=== PATIENT | male | born 1955 | race Caucasian/White ===

== ENCOUNTER 2019-09-28 09:30 | Outpatient (CLI) | payer OTHER, SELFPAY ==
--- NOTE | ~2019-09-28 | CT_ITS ---
EXAMINATION: CT lung screening DATE: 09/28/2019 10:38 INDICATION: Personal history of tobacco dependence, current smoker with 35 pack year history TECHNIQUE: Computed tomography (CT) of the chest was performed without intravenous contrast. The dose -length product (DLP) was 91.03 mGy-cm. Automated exposure control and iterative reconstruction techn [employer] were employed. COMPARISON: None FINDINGS: There is a 5 mm subpleural nodule in the right lower lobe on image 112. Mild emphysema is n oted. A few fissural lymph nodes are seen. The lungs are free of acute opacities. There is no pleural effusion or pneumothorax. No pathologically enlarged thoracic lymph nodes are identified. The heart size is normal. Calcified coronary artery atherosclerosis is noted. There is a fusiform aneurysm of t he ascending aorta which measures 4.7 x 4.2 cm at the level of the main pulmonary artery. There is mi ld thoracic spondylosis. A cyst is noted in the upper pole of the right kidney. IMPRESSION: 1. Lung-RADS category 2S: Benign appearance or behavior. Continue annual screening with noncontrast l ow-dose chest CT in 12 months. 2. Fusiform aneurysm of the ascending aorta. Reviewed, dictated and finalized at location A. IMPRESSION: 1. Lung-RADS category 2S: Benign appearance or behavior. Continue annual screen ing with noncontrast low-dose chest CT in 12 months. 2. Fusiform aneurysm of the ascending aorta.
== END 2019-09-28 09:31 | disposition home or self-care (01) ==
PROVIDERS: PCP Internal Medicine; Visit Provider Nurse Practitioner
DX: Z12.2 Encounter for screening for malignant neoplasm of respiratory organs (principal); Z87.891 Personal history of nicotine dependence; I71.4 Abdominal aortic aneurysm, without rupture
CPT/HCPCS: G0297

== ENCOUNTER 2020-10-13 10:30 | Outpatient (CLI) | payer OTHER, SELFPAY ==
--- NOTE | ~2020-10-13 | CT_ITS ---
EXAMINATION: CT diagnostic chest wo con EXAM DATE: 10/13/2020 10:54 INDICATION: Follow-up ascending aortic aneurysm. TECHNIQUE: Spiral CT of the chest without contrast. Axial, coronal and sagittal images of the chest were reviewed. Coronal maximum intensity pixel images of chest reviewed. The dose-length product ( DLP) for this examination was 217.01 mGy-cm. The exposure was tailored according to patient size (au to mA exposure control), and iterative reconstruction (ASIR) was used as additional dose reduction te chnique. Comparison is made to prior examination from 09/28/2019. FINDINGS: The ascending aorta measures 4.7 x 4.5 cm at the level of the main pulmonary artery, mildl y aneurysmal. There is mild emphysema and hyperinflation. There are no pleural or pericardial effusi ons. Some right mainstem bronchus tracheal debris. There is no mediastinal, hilar or axillary lymp hadenopathy. There is no pneumothorax. Heart normal in size. There is mild coronary arterial ca lcification, arterial sclerosis. There is 3 cm exophytic lesion superior pole right kidney measuring 24 Hounsfield units, most likely mildly proteinaceous cyst. There is another smaller lesion in the superior pole of the right kidney b elow this which does measure fluid density consistent with cysts. There is old right 7th rib fractu re posterolaterally. IMPRESSION: 1. Stable mildly aneurysmal ascending aorta; consider longer interval, 2 year follow-up noncontrast chest CT. 2. Mild emphysema and hyperinflation. 3. Right renal lesions likely cysts. Reviewed, dictated and finalized at location A.
== END 2020-10-13 10:31 | disposition home or self-care (01) ==
PROVIDERS: PCP Internal Medicine; Visit Provider Internal Medicine Cardiovascular Disease
DX: I71.2 Thoracic aortic aneurysm, without rupture (principal); J43.9 Emphysema, unspecified; R91.8 Other nonspecific abnormal finding of lung field
CPT/HCPCS: 71250

== ENCOUNTER 2021-03-03 09:02 | Outpatient (CLI) | payer MEDICARE, OTHER, SELFPAY ==
--- NOTE | ~2021-03-03 | US_ITS ---
EXAMINATION: US renal BI EXAM DATE: 03/03/2021 10:08 INDICATION: I10 - Essential (primary) hypertension . TECHNIQUE: Multiple grayscale and Doppler images of the kidneys were obtained (by a technologist who performed the scan) and subsequently reviewed. There is no prior study for comparison. FINDINGS: Right kidney: There is normal contour and echogenicity. It measures 9.5 x 5.0 x 5.7 centimeters. The re are 2 cysts measuring up to 2.7 cm. There is no hydronephrosis. Left kidney: There is normal contour and echogenicity. It measures 9.2 x 4.8 x 5.7 centimeters. The re are no focal renal lesions identified. There is no hydronephrosis. Bladder unremarkable. IMPRESSION: 1. Right renal cyst. Reviewed, dictated and finalized at location B. IMPRESSION: 1. Right renal cyst.
--- NOTE | ~2021-03-03 | US_ITS ---
EXAMINATION: US retroperitoneal duplex ltd EXAM DATE: 03/03/2021 10:10 INDICATION: I10 - Essential (primary) hypertension TECHNIQUE: Multiple grayscale and Doppler images of the kidneys and renal arteries were obtained. T here is no prior study for comparison. FINDINGS: The aorta peak systolic velocity is 76 cm/s. Renal arteries interrogated in several segments from origin to hilum. RIGHT RENAL ARTERY Proximal segment (origin): 145 cm/s. Middle segment: 153 cm/s. Distal segment (hilum): 129 cm/s. LEFT RENAL ARTERY Proximal segment (origin): 103 cm/s. Middle segment: 109 cm/s. Distal segment (hilum): 103 cm/s. IMPRESSION: 1. Renal artery Doppler velocities within normal limits. Reviewed, dictated and finalized at location B.
== END 2021-03-03 09:03 | disposition home or self-care (01) ==
LOC: ANHIMG 09:04
PROVIDERS: PCP Internal Medicine; Visit Provider Clinical Nurse Specialist
DX: I10 Essential (primary) hypertension (principal); N28.1 Cyst of kidney, acquired
CPT/HCPCS: 76775; 93976

== ENCOUNTER 2021-09-01 00:24 | Day surgery (SDC) | payer MEDICARE, OTHER, SELFPAY ==
[2021-08-19 13:55] VITALS: BMI 26.1
[2021-09-01 07:18] VITALS: BP 144/83; PULSE 65; RESP 18; TEMP 36.3; O2SAT 100
[2021-09-01] MEDS: LACTATED RINGERS 1,000 ML 150 ML IV CONT (07:21)
--- NOTE | 2021-09-01 08:05 | WPDANESEPPF ---
Anes - Initial Pre Proc Eval Procedure: Operation Date: 09/01/21 08:30 Proposed Procedures p Screening Colonoscopy - Ten Girard MD Date/Time: 09/01/21 08:05 Surgeon: Ten Girard MD Pre Op Diagnosis: family hx of colon ca Patient Data Age: 65 Gender: M Height: 1.8 m Weight: 85.1 kg Last Vital Signs Temp 97.4 F L 09/01/21 07:18 Pulse 65 09/01/21 07:18 Resp 18 09/01/21 07:18 BP 144/83 H 09/01/21 07:18 Pulse Ox 100 09/01/21 07:18 Allergies Allergy/AdvReac Type Severity Reaction Status Date / Time No Known Allergies Allergy Verified 09/01/21 07:16 Home Medications Medication Instructions Recorded Confirmed Type aspirin 81 mg tablet,delayed 81 mg PO DAILY 09/18/19 09/01/21 History release atorvastatin 20 mg tablet 20 mg PO DAILY 01/02/20 09/01/21 History amlodipine 5 mg tablet 5 mg PO DAILY 07/02/20 09/01/21 History metoprolol succinate 50 mg 150 mg PO ONCE tablet 12/30/20 09/01/21 History tablet,extended release 24 hr Patient hx anesthesia problems: none Family hx anesthesia problems: none Results Review: All pre-operative results and documents have been reviewed as part of the pre-operative evaluation. [facility] Family History Family History Mother Carcinoma of colon Father Pancreatic cancer Grandparent Acute myocardial infarction Social History Social History Smoking packs per day: 1 Smoking cigarettes per day: 20.0 Years smoked: 30 Smoking pack-years: 30.00 Smoking status: Current every day smoker Tobacco type: cigarettes Alcohol intake: never Substance use type: does not use Living arrangements: with family Spiritual care concerns: No Anes - Eval Final PreProcedure Day of Procedure 09/01/21 08:05 Patient weight: normal Heart: regular rate and rhythm Lungs: clear to auscultation Airway: Mallampati scale class II Neurological: alert and oriented Last oral intake: >/= 8 hours ASA classification: II Emergent: no Anesthetic plan: proceed Anesthesia type and monitoring: general GIVS and standard monitoring Results Review: All pre-operative results and documents have been reviewed as part of the pre-operative evaluation. Informed Consent: The patient's anesthetic plan and its attendant risks and benefits were discussed with the patient/family/POA. Questions were solicited and answers provided to the satisfaction of the patient/family/POA.
--- NOTE | 2021-09-01 08:25 | PM.HPGS ---
History of Present Illness History of Present Illness Consent: Risks, benefits, and alternatives have been discussed and questions answered. Patient agrees to proceed with procedure. Chief complaint: family hx of colon ca Narrative: Waqar Christianson is a 65 year old male here for first colonoscopy, mother had colon cancer Review of Systems Constitutional: Constitutional: Denies headache(s) and Denies weakness Eyes: Eyes: Denies blurry vision ENT: Reports Normal hearing present, Denies headache(s) and Denies neck pain Cardiovascular: Cardiovascular: Denies chest pain and Denies dyspnea Respiratory: Respiratory: Denies dyspnea Gastrointestinal: Gastrointestinal: Reports no additional gastrointestinal complaints Genitourinary: Genitourinary: Denies dysuria Musculoskeletal: Musculoskeletal: Denies neck pain Integumentary/Breasts: Skin/Breast: Denies dry skin Neurologic: Reports Normal hearing present, Denies headache(s) and Denies weakness Psychiatric: Psychiatric: Denies anxiety Endocrine: Endocrine: Denies change in body appearance Hematologic/Lymphatic: Hematologic/Lymphatic: Denies easy bleeding Allergic/Immunologic: Allergic/Immunologic: Denies urticaria PMF Past Medical History Medical History (Updated 09/01/21 @ 08:26 by Ten Girard MD) Family history of colon cancer in mother Family History Family History Mother Carcinoma of colon Father Pancreatic cancer Grandparent Acute myocardial infarction Social History Social History Smoking packs per day: 1 Smoking cigarettes per day: 20.0 Years smoked: 30 Smoking pack-years: 30.00 Smoking status: Current every day smoker Tobacco type: cigarettes Alcohol intake: never Substance use type: does not use Living arrangements: with family Spiritual care concerns: No Meds Home Medications and Allergies Home Medications Medication Instructions Recorded Confirmed Type aspirin 81 mg tablet,delayed 81 mg PO DAILY 09/18/19 09/01/21 History release atorvastatin 20 mg tablet 20 mg PO DAILY 01/02/20 09/01/21 History amlodipine 5 mg tablet 5 mg PO DAILY 07/02/20 09/01/21 History metoprolol succinate 50 mg 150 mg PO ONCE tablet 12/30/20 09/01/21 History tablet,extended release 24 hr Allergies Allergy/AdvReac Type Severity Reaction Status Date / Time No Known Allergies Allergy Verified 09/01/21 07:16 Vital Signs Vital Signs - 24 hr 09/01/21 07:18 Temperature 97.4 F L Pulse Rate 65 Respiratory Rate 18 Blood Pressure 144/83 H Pulse Oximetry 100 Exam Const: General: comfortable and no acute distress HENMT: General nose exam: Normal nares present Eyes: General: appearance normal, both eyes and all related structures Neck: Neck: no JVD Resp: Auscultation: clear to auscultation bilaterally Cardio: Rate: regular rate Rhythm: regular rhythm GI: Inspection: non-distended GI Palp: Yes Soft to palpation Skin: General skin exam: normal color Neuro: General: gait normal Speech: normal speech Extrem: General: normal to inspection Psych: Mental Status: mental status grossly normal Assessment and Plan Assessment and plan (1) Family history of colon cancer in mother: Code(s): Z80.0 - Family history of malignant neoplasm of digestive organs Status: Acute Assessment and Plan: colonoscopy
[2021-09-01 08:49] VITALS: BP 103/65; PULSE 55; RESP 13; O2SAT 99
[2021-09-01 08:59] VITALS: BP 121/61; PULSE 50; RESP 17; O2SAT 99
[2021-09-01 09:09] VITALS: BP 145/86; PULSE 56; RESP 17; O2SAT 100
== END 2021-09-01 09:23 | disposition home or self-care (01) ==
PROVIDERS: PCP Internal Medicine; Visit Provider Internal Medicine Gastroenterology
PROC: 0DJD8ZZ Inspection of Lower Intestinal Tract, Via Natural or Artificial Opening Endoscopic (ICD-10-PCS; CPT 45378; principal; 2021-09-01 08:30)
DX: Z12.11 Encounter for screening for malignant neoplasm of colon (principal); D12.2 Benign neoplasm of ascending colon; K63.5 Polyp of colon; K57.30 Diverticulosis of large intestine without perforation or abscess without bleeding; K64.8 Other hemorrhoids; Z80.0 Family history of malignant neoplasm of digestive organs; F17.210 Nicotine dependence, cigarettes, uncomplicated
CPT/HCPCS: 45385; 88305; J2704; J7120

== ENCOUNTER 2022-09-06 07:24 | Outpatient (CLI) | payer MEDICARE, SELFPAY ==
--- NOTE | ~2022-09-06 | CT_ITS ---
EXAMINATION:CT diagnostic chest wo con DATE: 09/06/2022 07:52 INDICATION: Thoracic aortic aneurysm. TECHNIQUE: Computed tomography (CT) of the chest was performed without intravenous contrast. Automate d exposure control and iterative reconstruction technique were employed. The dose-length product (DLP ) was 208.74 mGy-cm. COMPARISON: Chest CT 10/13/2020, ultrasound kidneys 03/03/2021 FINDINGS: There is mild emphysema. There is mild scarring at the lung apices. There is mild atelectas is bilaterally. There is mild scarring in paraspinal right lower lobe. No pleural effusion. The heart size is normal. There are coronary artery calcifications. No pericardial effusion. The aorta measure s 4.6 cm at the sinuses of Valsalva, 3.8 cm at the sinotubular junction, 4.6 cm in the mid ascending aorta, 3.1 cm at the aortic isthmus, and 3.1 cm in the mid descending aorta. There is mild aortic ath erosclerosis. There is a small sliding hiatal hernia. There are cysts in the right kidney measuring u p to 3.2 cm . There is severe cervical spondylosis and moderate thoracic spondylosis. IMPRESSION: 1. Ectasia of ascending aorta measuring 4.6 cm, stable from 10/13/2020. 2. Mild emphysema. Reviewed, dictated and finalized at location A.
== END 2022-09-06 07:25 | disposition home or self-care (01) ==
PROVIDERS: PCP Internal Medicine; Visit Provider Internal Medicine Cardiovascular Disease
DX: I71.21 Aneurysm of the ascending aorta, without rupture (principal); J43.9 Emphysema, unspecified
CPT/HCPCS: 71250

== ENCOUNTER 2023-08-25 15:01 | Outpatient (CLI) | payer MEDICARE, SELFPAY ==
--- NOTE | ~2023-08-25 | CT_ITS ---
EXAMINATION:CT diagnostic chest wo con DATE: 08/25/2023 15:26 INDICATION: Aneurysm of ascending aorta without rupture. TECHNIQUE: Computed tomography (CT) of the chest was performed without intravenous contrast. Automate d exposure control and iterative reconstruction technique were employed. The dose-length product (DLP ) was 235.76 mGy-cm. COMPARISON: Chest CT 09/06/2022, ultrasound kidneys 03/03/2021 FINDINGS: There is mild emphysema. There is mild atelectasis bilaterally. No pleural effusion. The he art size is normal. There are coronary artery calcifications. No pericardial effusion. The aorta gaetano ures 4.1 cm at the sinuses of Valsalva, 3.7 cm at the sinotubular junction, 4.5 cm in the mid ascendi ng aorta, 3.1 cm at the aortic isthmus, and 2.7 cm in mid descending aorta. There are cysts in the ki dneys measuring up to 3.2 cm on the right. There is severe cervical spondylosis and mild thoracic spo ndylosis. IMPRESSION: 1. Stable ectasia of ascending aorta measuring 4.5 cm. 2. Mild emphysema. Reviewed, dictated and finalized at location E.
== END 2023-08-25 15:02 | disposition home or self-care (01) ==
PROVIDERS: PCP Internal Medicine; Visit Provider Nurse Practitioner Adult Health
DX: I71.21 Aneurysm of the ascending aorta, without rupture (principal); J43.9 Emphysema, unspecified
CPT/HCPCS: 71250

== ENCOUNTER 2024-09-10 10:26 | Outpatient (CLI) | payer MEDICARE, SELFPAY ==
--- NOTE | ~2024-09-10 | CT_ITS ---
EXAMINATION: CT diagnostic chest wo con DATE: 09/10/2024 10:44 INDICATION: Aneurysm of ascending aorta TECHNIQUE: Computed tomography (CT) of the chest was performed without intravenous contrast. Addition al 3D reconstructions utilizing coronal maximum intensity projection (MIP) were performed. Automated exposure control and iterative reconstruction technique were employed. The dose-length product was 24 2.44 mGy-cm. COMPARISON: 08/25/2023 FINDINGS: Mild upper lung predominant emphysema. Discoid atelectasis/scarring in the left upper lobe and lingul a along the anterior margin of the left major fissure. No suspicious pulmonary nodules, pneumonia, pu lmonary edema or pleural effusion. Heart size is normal. Atherosclerotic coronary artery calcificatio n. No pericardial effusion. No interval change in a fusiform ascending thoracic aortic aneurysm measu ring up to 4.5 cm in maximal diameter. This tapers to normal caliber descending thoracic aorta. No pa thologically enlarged thoracic lymphadenopathy. A couple right renal cysts measuring up to 3 cm. Holly re lower cervical and mild thoracic spondylosis. IMPRESSION: 1. Unchanged fusiform ascending thoracic aortic aneurysm measuring up to 4.5 cm in maximal diameter. 2. Mild emphysema. Reviewed, dictated and finalized at location A.
--- OUTSIDE RECORDS SUMMARY | 2024-09-10 11:22 | XMS_ITS | Encounter Summary ---
Author Organization [facility] Address [address] [place] [address] Care Team Providers Care Production Helper Name Role Phone AnaiTom sharpe DO Primary Care Provider Encounter Details Date Type Department Care Team (Late st Contact Info) Description 02/13/2024 Lab Requisition [facility] - DermPath Lab [address] [place] [address] Edmar Rodriges MD [address] [place] [address] Social History Tobacco Use Types Packs/Day Years Used Date Smoking Tobacco: Never Assessed Sex and Gender Information Value Date Recorded Sex Assigned at Not on file Legal Sex Male 4:55 PM CDT Gender Identity Not on file Sexual Orientation Not on file documented as of this encounter Plan of Treatment Not on file documented as of this encounter Procedures Procedure Name Priority Date/Time Associated Diagnosis Comments DERMATOPATHOLOGY Routine 02/08/2024 12:0 0 AM CDT documented in this encounter Results * DERMATOPATHOLOGY (02/08/2024 12:00 AM CDT) Case Report Dermatopathology Report Case: [id number] Authorizing Provider: Edmar Rodriges MD Collected: 02/08/2024 12:00 AM Ordering Location: [facility] - Received: 02/13/2024 08:23 AM DermPath Lab Pathologist: Magdalena Wei MD Specimen: Skin, left gnosticism 2:24 PM CDT DERMATOPATHOLOGY LABORATORY Final Diagnosis Specimen A. SKIN, left gnosticism: SQUAMOUS CELL CARCINOMA, WELL DIFFERENTIATED (C44.329) 10/08/202 4 2:24 PM CDT DERMATOPATHOLOGY LABORATORY Clinical History R/o SCC 2:24 PM CDT DERMATOPATHOLOGY LABORATORY Gross Description Specimen A: Received is one formalin filled container labeled with the patient's name and designated left gnosticism. The specimen consists of a shave biopsy measuring 12s83i4 mm. Jar 0. 2:24 PM CDT DERMATOPATHOLOGY LABORATORY Microscopic Description Specimen A. SKIN, left gnosticism: Arising in the epidermis and extending into the dermis there are irregularly shaped aggregates of keratinocytes showing evidence of premature cornification. 2:24 PM CDT DERMATOPATHOLOGY LABORATORY Disclaimer An external and internal positive and negative controls are appropriate for the histochemical, immunohistochemical and immunofluorescence stain(s) in this case (if any), except where stated explicitly. The performance characteristics of the stain(s) cited in this report were developed and its performance characteristic determined by the Dermatopathology Laboratory at [facility], directed by Dr. Sherrell Peoples. These tests need not be, and therefore are not, approved by the [place] Food and Drug Administration. The tests are used for clinical purposes. Billing Codes Specimen Charges Stain Charges 87924 1 2:24 PM CDT DERMATOPATHOLOGY LABORATORY Embedded Images 2:24 PM CDT DERMATOPATHOLOGY LABORATORY Pathology/Cytolog y TISSUE SPECIMEN FROM SKIN / Unknown 02/08/2024 02/13/2024 8:23 AM CDT Edmar Rodriges MD LAB - PATHOLOGY/CYTOLOGY ORD ERABLES Final Result DERMATOPATHOLOGY LABORATORY [facility] - Department of Dermatology [address], [address] [phone] documented in this encounter Visit Diagnoses Not on filedocumented in this encounter Care Teams Production Helper Relationship Specialty Start Date End Date Tom Bermudez DO PCP - General 09/06/21 documented as of this encounter
--- OUTSIDE RECORDS SUMMARY | 2024-09-10 11:22 | XMS_ITS | Encounter Summary ---
Author Organization [facility] Address [address] [place] [address] Care Team Providers Care Bark Press Operator Name Role Phone Anaiannemarie Tom Dante DO Primary Care Provider Encounter Details Date Type Department Care Team (Late st Contact Info) Description 10/28/2022 Lab Requisition [facility] - DermPath Lab [address] [place] [address] Edmar Rodriges MD [address] [place] [address] Social History Tobacco Use Types [...] Priority Date/Time Associated Diagnosis Comments DERMATOPATHOLOGY Routine 10/27/2022 12:0 0 AM CDT documented in this encounter Results * DERMATOPATHOLOGY (10/27/2022 12:00 AM CDT) Case Report Dermatopathology Report Case: [id number] Authorizing Provider: Edmar Rodriges MD Collected: 10/27/2022 12:00 AM Ordering Location: [facility] DermPath Lab Received: 10/28/2022 11:40 AM Pathologist: Liz Rodriges MD Specimen: Skin, left lower deltoid 3:37 PM CDT DERMATOPATHOLOGY LABORATORY Final Diagnosis Specimen A. SKIN, left lower deltoid: SQUAMOUS CELL CARCINOMA IN SITU (MCCALL'S DISEASE) (D04.62) NOT PRESENT AT SAMPLED MARGIN 3 3:37 PM CDT DERMATOPATHOLOGY LABORATORY Clinical History R/O SCC HAK Check margin 3 3:37 PM CDT DERMATOPATHOLOGY LABORATORY Gross Description Specimen A: Received is one formalin filled container labeled with the patients name and designated left lower deltoid. The specimen consists of a shave removal measuring 45b74x2 mm. Jar 0. 3 3:37 PM CDT DERMATOPATHOLOGY LABORATORY Microscopic Description Specimen A. SKIN, left lower deltoid: The epidermis shows parakeratosis, full thickness disorderly maturation of keratinocytes, mitoses at different levels, and dyskeratotic cells. This lesion is not present at the sampled margin of the specimen. 3 3:37 PM CDT DERMATOPATHOLOGY LABORATORY Disclaimer An external and internal positive and negative controls are appropriate for the histochemical, immunohistochemical and immunofluorescence stain(s) in this case (if any), except where stated explicitly. The performance characteristics of the stain(s) cited in this report were developed and its performance characteristic determined by the Dermatopathology Laboratory at [facility], directed by Dr. Sherrell Peoples. These tests need not be, and therefore are not, approved by the [place] Food and Drug Administration. The tests are used for clinical purposes. Billing Codes Specimen Charges Stain Charges 56996 1 3 3:37 PM CDT DERMATOPATHOLOGY LABORATORY Embedded Images 3 3:37 PM CDT DERMATOPATHOLOGY LABORATORY Pathology/Cytolog y TISSUE SPECIMEN FROM SKIN / Unknown 10/27/2022 10/28/2022 11:40 AM CDT us Edmar Rodriges MD LAB - PATHOLOGY/CYTOLOGY ORD ERABLES Final Result DERMATOPATHOLOGY LABORATORY [facility] - Department of Dermatology [address] [place] [address], [facility] [phone] documented in this encounter Visit Diagnoses Not on filedocumented in this encounter Care Teams Bark Press Operator Relationship Specialty Start Date End Date Tom Bermudez DO PCP - General 09/06/21 documented as of this encounter
--- OUTSIDE RECORDS SUMMARY | 2024-09-10 11:22 | XMS_ITS | Clinical Summary ---
Author Organization [facility] [place] [address] Address [address] [place] [address] Care Team Providers Care Antisqueak Applier Name Role Phone Ricarda Duque NP Primary Care Provider [phone] Allergies No known active allergies Medications aspirin 81 mg enteric coated tablet Take 1 tablet (81 mg total) by mouth daily Active cholecalciferol (VITAMIN D-3) 2000 unit tablet 12/31/19 21 Active amLODIPine-valsar pereira-hcthiazid 10-160-12.5 mg tabletIndications :Aneurysm of ascending aorta without rupture,Essential hypertension TAKE 1 TABLET BY MOUTH DAILY 90 tablet 2 05/16/19 25 Active metoprolol XL (TOPROL-XL) 50 mg extended release tabletIndications :Aneurysm of ascending aorta without rupture,Essential hypertension TAKE 3 TABLETS(15 0 MG) BY MOUTH DAILY 270 tablet 3 05/24/19 25 Active atorvastatin (LIPITOR) 20 mg tabletIndications :Coronary artery calcification seen on CAT scan TAKE 1 TABLET(20 MG) BY MOUTH DAILY 90 tablet 1 08/23/19 25 Active atorvastatin (LIPITOR) 20 mg tabletIndications :Coronary artery calcification seen on CAT scan Take 1 tablet (20 mg total) by mouth daily 90 tablet 3 08/22/19 24 025 Discontinued Active Problems Problem Noted Date Diagnosed Date Bradycardia 02/10/2022 Stage 3a chronic kidney disease 02/01/2021 Hypercholesteremia 07/21/2020 Coronary artery calcification seen on CAT scan 0 10/10/2019 Tobacco use 10/10/2019 Ascending aortic aneurysm 10/10/2019 Essential hypertension 10/10/2019 Encounters Date Type Department Care Team Description 09/03/2024 8:30 AM CDT Office Visit [facility] [address] [place] [address] Kavitha Renteria MD Coronary artery calcification seen on CAT scan (Primary Dx); Essential hypertension; Hypercholesteremia; Aneurysm of ascending aorta without rupture; Stage 3a chronic kidney disease (HCC); Tobacco use from Last 3 Months Medical History Medical History Date Comments Ascending aortic aneurysm HTN (hypertension) Coronary artery calcification seen on CAT scan Heart disease Aneurysm Family History Medical History Relation Name Comments Heart disease Brother Price Coronary stent Cancer Father Nitish Christianson Pancreatic cancer Father Nitish Christianson Cancer Mother Chantale Villavicencio Colon cancer Mother Chantale Villavicencio Hypertension Mother Chantale Villavicencio Aortic aneurysm Neg Hx Sudden Cardiac Neg Hx Relation Name Status Comments Brother Price Alive Father Nitish Christianson Mother Chantale Villavicencio Social History Tobacco Use Types Packs/Day Years Used Date Smoking Tobacco: Every Day Cigarettes 0.1 35.3 Started: 05/11/1989 Smokeless Tobacco: Never Alcohol Use Standard Drinks/Week Comments Never 0 (1 standard drink = 0.6 oz pur e alcohol) AUDIT-C Answer Date Recorded Q1: How often do you have a drink containing alc ohol? 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 Not on file Not on file Obstetrics History Last Filed Vital Signs Vital Sign Reading Time Taken Comments Blood Pressure 124/76 09/03/2024 8:17 AM CDT Pulse 50 09/03/2024 8:17 AM CDT Temperature - - Respiratory Rate - - Oxygen Saturation 99% 09/03/2024 8:17 AM CDT Inhaled Oxygen Concentration - - Weight 86.2 kg (190 lb) 09/03/2024 8:17 AM CDT Height 180.3 cm (5' 11 ) 09/03/2024 8:17 AM CDT Body Mass Index 26.5 09/03/2024 8:17 AM CDT Plan of Treatment Health Maintenance Due Date Last Done Comments Colon Cancer Screening-Colonoscopy 1955 Depression Screening 1955 Fall Risk Assessment 1955 Hepatitis C Screening 1955 Prostate Cancer Screening-PSA 1955 DTaP/Tdap/Td Vaccine (1 - Tdap) 11/27/1966 Hepatitis B Screening 11/27/1973 Pneumococcal vaccine 65+ (1 of 2 - PCV) 11/27/1974 Zoster Vaccine (1 of 2) 11/27/2005 Abdominal Aortic Aneurysm (AAA) Screen 11/27/2020 Well Visit 65+ 11/27/2020 Influenza Vaccine (Season Ended) 2025 Procedures Procedure Name Priority Date/Time Associated Diagnosis Comments POCT LIPID PANEL Routine 09/03/2024 8:12 AM CDT Hypercholesteremia from Last 3 Months Results * POCT lipid panel (09/03/2024 8:12 AM CDT) Cholesterol, POC 111 mg/dL HDL, POC 35 mg/dL Triglycerides, POC 88 mg/dL LDL Cholesterol POC 59 mg/dL Chol/HDL Ratio, POC 1.7 Non-HDL Cholesterol, POC 76 mg/dL Cholesterol Total, POC 111 mg/dL Capillary blood 09/03/2024 8 :12 AM CDT Kavitha Renteria MD POINT OF CARE TEST O RDERABLES Final Result from Last [address] [place] [address] [place] [address] [facility] MEDICARE ADVANTAGE [facility] MEDICARE ADVANTAGE Care Teams Antisqueak Applier Relationship Specialty Start Date End Date Ricarda Duque NP [facility] [address] PCP - General Internal Medicine 10/04/19
--- OUTSIDE RECORDS SUMMARY | 2024-09-10 11:22 | XMS_ITS | Referral Summary ---
Author Organization [facility] [place] [address] [facility] [address] Address [address] [place] [address] Care Team Providers Care Linen Clerk Name Role Phone Ricarda Duque NP Primary Care Provider [phone] Encounters Date Type Department Care Team Description 09/03/2024 8:30 AM CDT Office Visit [facility] Cardiology [address] [place] [address] Kavitha Renteria MD Coronary artery calcification seen on CAT scan (Primary Dx); Essential hypertension; Hypercholesteremia; Aneurysm of ascending aorta without rupture; Stage 3a chronic kidney disease (HCC); Tobacco use from Last 3 Months Allergies No known active allergies Medications aspirin [...] Ascending aortic aneurysm 10/10/2019 Essential hypertension 10/10/2019 Social History Tobacco Use Types Packs/Day Years [...] 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 Not on file Not on file Last Filed Vital Signs Vital Sign Reading [...] 09/03/2024 8:17 AM CDT Plan of Treatment Not on file Procedures Procedure Name Priority Date/Time Associated Diagnosis [...] Final Result from Last 3 Months Insurance [facility] MEDICARE ADVANTAGE Member Subscriber Plan / Payer ( fective 2022-Present) Name:Waqar Christianson Relation to Subscriber:Self Name:Waqar Christianson Payer ID:[id number] (NAIC) Type:[facility] MEDICARE Address: [place] [phone] UHC MEDICARE ADVANTAGE [place] [id number] Care Teams Linen Clerk Relationship Specialty Start Date End Date Yakel, Ricarda A., AUTO SERVICE DISPATCHER [facility] [facility] [place] [address], [place] [address] PCP - General Internal Medicine 10/04/19
--- OUTSIDE RECORDS SUMMARY | 2024-09-10 11:22 | XMS_ITS | Encounter Summary ---
Author Organization [facility] Address [address] [facility] [place] [address] Care Team Providers Care Skein Straightener Name Role Phone AnaiTom sharpe DO Primary Care Provider Encounter Details Date Type Department Care Team (Late st Contact Info) Description 04/18/2023 Lab Requisition [facility] - DermPath Lab [address] [facility] [place] [address] Edmar Rodriges MD [address] [place] [address] Social History Tobacco Use Types [...] Priority Date/Time Associated Diagnosis Comments DERMATOPATHOLOGY Routine 04/13/2023 12:0 0 AM HIDE WORKER documented in this encounter Results * DERMATOPATHOLOGY (04/13/2023 12:00 AM HIDE WORKER) Case Report Dermatopathology Report Case: [id number] Authorizing Provider: Edmar Rodriges MD Collected: 04/13/2023 12:00 AM Ordering Location: [facility] DermPath Lab Received: 04/18/2023 07:44 AM Pathologist: Magdalena Wei MD Specimen: Skin, left lateral upper back 12:59 PM HIDE WORKER DERMATOPATHOLOGY LABORATORY Final Diagnosis Specimen A. SKIN, left lateral upper back: SQUAMOUS CELL CARCINOMA, MODERATELY DIFFERENTIATED WITH FOCAL INFILTRATIVE FEATURES (C44.529) (see microscopic description) 3 12:59 PM [facility] DERMATOPATHOLOGY LABORATORY Clinical History R/O BCC, SCC, Joseph 3 12:59 PM [facility] DERMATOPATHOLOGY LABORATORY Gross Description Specimen A: Received is one formalin filled container labeled with the patient's name and designated left lateral upper back. The specimen consists of a shave biopsy measuring [id number] mm. Jar 0. 3 12:59 PM [facility] DERMATOPATHOLOGY LABORATORY Microscopic Description Specimen A. SKIN, left lateral upper back: There are nests of squamous epithelial cells which arise from the epidermis and extend into the dermis. The nests have only focal central keratinization. Focal infiltrative features are present. 3 12:59 PM [facility] DERMATOPATHOLOGY LABORATORY Disclaimer An external and internal positive and negative controls are appropriate for the histochemical, immunohistochemical and immunofluorescence stain(s) in this case (if any), except where stated explicitly. The performance characteristics of the stain(s) cited in this report were developed and its performance characteristic determined by the Dermatopathology Laboratory at [facility], directed by Dr. Sherrell Peoples. These tests need not be, and therefore are not, approved by the [place] Food and Drug Administration. The tests are used for clinical purposes. Billing Codes Specimen Charges Stain Charges 38344 1 3 12:59 PM HIDE WORKER DERMATOPATHOLOGY LABORATORY Embedded Images 3 12:59 PM [facility] DERMATOPATHOLOGY LABORATORY Pathology/Cytolog y TISSUE SPECIMEN FROM SKIN / Unknown 04/13/2023 04/18/2023 7:44 AM HIDE WORKER us Edmar Rodriges MD LAB - PATHOLOGY/CYTOLOGY ORD ERABLES Final Result DERMATOPATHOLOGY LABORATORY [facility] - Department of Dermatology [address], [address] [phone] documented in this encounter Visit Diagnoses Not on filedocumented in this encounter Care Teams Skein Straightener Relationship Specialty Start Date End Date Tom Bermudez DO PCP - General 09/06/21 documented as of this encounter
--- OUTSIDE RECORDS SUMMARY | 2024-09-10 11:22 | XMS_ITS | Encounter Summary ---
Author Organization [facility] Address [address] [place] [address] Care Team Providers Care Barrel Loader And Cleaner Name Role Phone Alicjakash Tom Dante DO Primary Care Provider Encounter Details Date Type Department Care Team (Late st Contact Info) Description 04/11/2023 Lab Requisition [facility] - DermPath Lab [address] [facility] [place] [address] Edmar Rodriges MD [address] [place] [address] Social History Tobacco Use Types [...] Priority Date/Time Associated Diagnosis Comments DERMATOPATHOLOGY Routine 04/06/2023 12:0 0 AM POTATO CHIP COOKER MACHINE documented in this encounter Results * DERMATOPATHOLOGY (04/06/2023 12:00 AM POTATO CHIP COOKER MACHINE) Case Report Dermatopathology Report Case: [id number] Authorizing Provider: Edmar Rodriges MD Collected: 04/06/2023 12:00 AM Ordering Location: [facility] DermPath Lab Received: 04/11/2023 08:29 AM Pathologist: Macho Peoples MD Specimens: A) - Skin, mid left cheek by nose B) - Skin, left preauric cheek C) - Skin, dorsal right hand D) - Skin, left post upper arm above elbow 3 4:36 PM [facility] DERMATOPATHOLOGY LABORATORY Final Diagnosis Specimen A. SKIN, mid left cheek by nose: SUPERFICIAL (FOCALLY INVASIVE) SQUAMOUS CELL CARCINOMA ARISING IN AN ACTINIC KERATOSIS (C44.329) Specimen B. SKIN, left preauric cheek: SQUAMOUS CELL CARCINOMA, ACANTHOLYTIC TYPE (C44.329) Specimen C. SKIN, dorsal right hand: SQUAMOUS CELL CARCINOMA, WELL DIFFERENTIATED (C44.622) OVERLYING CUTANEOUS HORN (L85.8) Specimen D. SKIN, left post upper arm above elbow: HYPERPLASTIC (HYPERTROPHIC) ACTINIC KERATOSIS (L57.0) OVERLYING CUTANEOUS HORN (L85.8) 3 4:36 PM [facility] DERMATOPATHOLOGY LABORATORY Clinical History A-D: R/O SCC, BCC, Woody's 3 4:36 PM [facility] DERMATOPATHOLOGY LABORATORY Gross Description Specimen A: Received is one formalin filled container labeled with the patient's name and designated mid left cheek by nose. The specimen consists of a shave biopsy measuring 9x4x1 mm. Jar 0. Specimen B: Received is one formalin filled container labeled with the patient's name and designated left preauric cheek. The specimen consists of a shave biopsy measuring 22y89e5 mm. Jar 0. Specimen C: Received is one formalin filled container labeled with the patient's name and designated dorsal right hand. The specimen consists of a shave biopsy measuring 91u55r6 mm. Jar 0. Specimen D: Received is one formalin filled container labeled with the patient's name and designated left post upper arm above elbow. The specimen consists of a shave biopsy measuring 20f33b2 mm. Jar 0. 3 4:36 PM [facility] DERMATOPATHOLOGY LABORATORY Microscopic Description Specimen A. SKIN, mid left cheek by nose: Sections reveal parakeratosis, acanthosis and keratinocyte dysmaturation which is most prominent in the lower epidermis. Focal nests are present in the dermis. Specimen B. SKIN, left preauric cheek: Sections show skin with irregularly shaped nests of keratinocytes with evidence of cornification. In some nests, there is loss of cohesion between the neoplastic cells, as well as individual dyskeratotic cells that lack intercellular bridges. Specimen C. SKIN, dorsal right hand: Arising in the epidermis and extending into the dermis there are irregularly shaped aggregates of keratinocytes showing evidence of premature cornification. There is a column of marked compact hyperkeratosis. Specimen D. SKIN, left post upper arm above elbow: There is hyperkeratosis alternating with parakeratosis. There is epidermal hyperplasia with disorderly maturation of keratinocytes with nuclear pleomorphism confined to the lower half of the epidermis. There is a column of marked compact hyperkeratosis. 3 4:36 PM [facility] DERMATOPATHOLOGY LABORATORY Disclaimer An external and internal positive and negative controls are appropriate for the histochemical, immunohistochemical and immunofluorescence stain(s) in this case (if any), except where stated explicitly. The performance characteristics of the stain(s) cited in this report were developed and its performance characteristic determined by the Dermatopathology Laboratory at [facility], directed by Dr. Sherrell Peoples. These tests need not be, and therefore are not, approved by the [place] Food and Drug Administration. The tests are used for clinical purposes. Billing Codes Specimen Charges Stain Charges 82303 56469 95599 45966 1 1 1 1 3 4:36 PM POTATO CHIP COOKER MACHINE DERMATOPATHOLOGY LABORATORY Embedded Images 3 4:36 PM POTATO CHIP COOKER MACHINE DERMATOPATHOLOGY LABORATORY Pathology/Cytology TISSUE SPECIMEN FROM SKIN / Unknown 04/06/2023 04/11/2023 8:29 AM POTATO CHIP COOKER MACHINE Miscellaneous samples (specimen) TISSUE SPECIMEN FROM SKIN / Unknown 04/06/2023 04/11/2023 8:29 AM POTATO CHIP COOKER MACHINE Miscellaneous samples (specimen) TISSUE SPECIMEN FROM SKIN / Unknown 04/06/2023 04/11/2023 8:29 AM POTATO CHIP COOKER MACHINE Miscellaneous samples (specimen) TISSUE SPECIMEN FROM SKIN / Unknown 04/06/2023 04/11/2023 8:29 AM POTATO CHIP COOKER MACHINE us Edmar Rodriges MD LAB - PATHOLOGY/CYTOLOGY ORD ERABLES Final Result DERMATOPATHOLOGY LABORATORY [facility] - Department of Dermatology [facility] [address] [place] [address], [address] [place] [address], [facility] [phone] documented in this encounter Visit Diagnoses Not on filedocumented in this encounter Care Teams Barrel Loader And Cleaner Relationship Specialty Start Date End Date Tom Bermudez DO PCP - General 09/06/21 documented as of this encounter
--- OUTSIDE RECORDS SUMMARY | 2024-09-10 11:22 | XMS_ITS | Encounter Summary ---
Author Organization [facility] Address [address] [place] [address] Care Team Providers Care Cloth Winder Name Role Phone Alicjakash Tom Dante DO Primary Care Provider Encounter Details Date Type Department Care Team (Late st Contact Info) Description 10/07/2022 Lab Requisition [facility] - DermPath Lab [address] [facility] [place] [address] Edmar Rodriges MD [address] [place] [address] Social History Tobacco Use Types [...] Priority Date/Time Associated Diagnosis Comments DERMATOPATHOLOGY Routine 10/06/2022 12:0 0 AM CDT documented in this encounter Results * DERMATOPATHOLOGY (10/06/2022 12:00 AM CDT) Case Report Dermatopathology Report Case: [id number] Authorizing Provider: Edmar Rodriges MD Collected: 10/06/2022 12:00 AM Ordering Location: [facility] DermPath Lab Received: 10/07/2022 02:00 PM Pathologist: Macho Peoples MD Specimen: Skin, left lower flor lip 11:53 AM CDT DERMATOPATHOLOGY LABORATORY Final Diagnosis Specimen A. SKIN, left lower flor lip: SQUAMOUS CELL CARCINOMA IN SITU (MCCALL'S DISEASE) (D04.39) OVERLYING CUTANEOUS HORN (L85.8) 3 11:53 AM CDT DERMATOPATHOLOGY LABORATORY Clinical History R/O HAK, SCC other 3 11:53 AM CDT DERMATOPATHOLOGY LABORATORY Gross Description Specimen A: Received is one formalin filled container labeled with the patient's name and designated left lower flor lip. The specimen consists of a shave biopsy measuring 4x3x3 mm. Jar 0. 3 11:53 AM CDT DERMATOPATHOLOGY LABORATORY Microscopic Description Specimen A. SKIN, left lower flor lip: The epidermis shows parakeratosis, full thickness disorderly maturation of keratinocytes, mitoses at different levels, and dyskeratotic cells. There is a column of marked compact hyperkeratosis. 3 11:53 AM CDT DERMATOPATHOLOGY LABORATORY Disclaimer An external and internal positive and negative controls are appropriate for the histochemical, immunohistochemical and immunofluorescence stain(s) in this case (if any), except where stated explicitly. The performance characteristics of the stain(s) cited in this report were developed and its performance characteristic determined by the Dermatopathology Laboratory at [facility], directed by Dr. Sherrell Peoples. These tests need not be, and therefore are not, approved by the [place] Food and Drug Administration. The tests are used for clinical purposes. Billing Codes Specimen Charges Stain Charges 78105 1 3 11:53 AM CDT DERMATOPATHOLOGY LABORATORY Embedded Images 3 11:53 AM CDT DERMATOPATHOLOGY LABORATORY Pathology/Cytolog y TISSUE SPECIMEN FROM SKIN / Unknown 10/06/2022 10/07/2022 2:00 PM CDT Edmar Rodriges MD LAB - PATHOLOGY/CYTOLOGY ORD ERABLES Final Result DERMATOPATHOLOGY LABORATORY [facility] - Department of Dermatology [address] [phone] documented in this encounter Visit Diagnoses Not on filedocumented in this encounter Care Teams Cloth Winder Relationship Specialty Start Date End Date Tom Bermudez DO PCP - General 09/06/21 documented as of this encounter
--- OUTSIDE RECORDS SUMMARY | 2024-09-10 11:22 | XMS_ITS | Clinical Summary ---
Author Organization [facility] Address [address] [place] [address] Care Team Providers Care Environmental Engineer Name Role Phone Tom Bermudez DO Primary Care Provider Source Comments [facility],non-owned Affiliates and Associated Physician Practices is amultiple site organization consisting of ambulatory clinics and hospital sitesin [place], [place], [place] and [place]. This disclosure is being madepursuant to the Care Everywhere program and may not contain all information available regarding this patient. Last updated 18.[facility] Social History Tobacco Use Types Packs/Day Years Used Date Smoking Tobacco: Never Assessed Sex and Gender Information Value Date Recorded Sex Assigned at Not on file Legal Sex Male 4:55 PM CDT Gender Identity Not on file Sexual Orientation Not on file Plan of Treatment Health Maintenance Due Date Last Done Comments COLOGUARD (AGES 45-75) - COL ON CA SCREENING 1955 COLON MONITORING 1955 COLONOSCOPY - COLON CA SCREENING 1955 CT COLONOGRAPHY - COLON CA SCREENING 1955 Colorectal Cancer Screening 1955 FIT - COLON CA SCREENING 1955 FLEX SIG - COLON CA SCREENING 1955 LIPID TESTING 1955 HEPATITIS C SCREENING 11/23/1973 DTAP/TDAP/TD VACCINES (1 - Tdap) 11/27/1974 PNEUMOCOCCAL VACCINE 50+ (1 of 1 - PCV) 11/27/2005 ZOSTER VACCINE (1 of 2) 11/27/2005 COVID-19 VACCINE ( - 2023-2 5 season) 2024 DEPRESSION SCREENING 05/09/2024 MEDICARE AWV CALENDAR YEAR 2024 INFLUENZA VACCINE (Season Ended) 2025 Respiratory Syncytial Virus (RSV) Vaccine Pt: or over 60 yrs (1 - 1-dose 75+ series) 11/27/2030 HEPATITIS B VACCINE Aged Out No longe r eligible based on patient's age to complete this topic HIB VACCINE Aged Out No longer eligi ble based on patient's age to complete this topic HPV VACCINE Aged Out No longer eligi ble based on patient's age to complete this topic MENINGOCOCCAL (Group B) VACC INE SHARED DECISION-MAKING Aged Out No longer eligibl e based on patient's age to complete this topic MENINGOCOCCAL GROUPS A/C/Y/W VACCINE Aged Out No longer eligible b ased on patient's age to complete this topic Insurance MEDICARE [employer] UHC MANAGED MEDICARE ADV Care Teams Environmental Engineer Relationship Specialty Start Date End Date Tom Bermudez DO PCP - General 09/06/21
--- OUTSIDE RECORDS SUMMARY | 2024-09-10 11:22 | XMS_ITS | Clinical Summary ---
Author Organization [facility] Address [address] [place] [phone] Phone Care Team Providers Care Train Braker Name Role Phone Tom Bermudez DO Primary Care Provider [phone] Allergies No known active allergies Medications amLODIPine (NORVASC) 5 MG tablet 04/21/2021 Active aspirin (ST CARMINE) 81 MG EC tablet Take 81 mg by mouth daily Active atorvastatin (LIPITOR) 20 MG tablet 02/22/2021 Active cholecalciferol (VITAMIN D-3 SUPER STRENGTH) 50 MCG (1999) tablet 12/30/2020 Active metoprolol succinate XL (TOPROL-XL) 50 MG 24 hr tablet 150 mg 03/29/2021 Act fani valsartan (DIOVAN) 80 MG tablet 03/05/2022 Active Active Problems Problem Noted Date Diagnosed Date Bradycardia 02/10/2022 Chronic kidney disease stage 2 02/01/2021 Stage 3a chronic kidney disease 02/01/2021 Hypercholesterolemia 07/21/2020 Aneurysm of ascending aorta 10/10/2019 Benign essential hypertension 10/10/2019 Calcification of coronary artery 10/10/2019 Tobacco use 10/10/2019 Immunizations Immunization Administration Dates Next Due Sars-cov-2, Unspecified 08/19/2021,02/18/2021,,08/16/2020 Family History Medical History Relation Comments Heart disease Brother Pancreatic cancer Father Colon cancer Mother Relation Status Comments Brother Father Mother Social History Tobacco Use Types Packs/Day Years Used Date Smoking Tobacco: Every Day Cigarettes 0.5 35.3 Started: 05/11/1989 Smokeless Tobacco: Never Tobacco Cessation:Ready to Q uit: No; Counseling Given: Yes Alcohol Use Standard Drinks/Week Comments Never 0 (1 standard drink = 0.6 oz pur e alcohol) Sex and Gender Information Value Date Recorded Sex Assigned at Not on file Legal Sex Male 11:04 AM MST Gender Identity Not on file Sexual Orientation Not on file Last Filed Vital Signs Vital Sign Reading Time Taken Comments Blood Pressure 132/74 03/17/2022 2:53 PM INSPECTOR [employer] Pulse - - Temperature 35.7 C (96.3 F) 03/17/2022 2:53 PM INSPECTOR [employer] WAFER Respiratory Rate 18 03/17/2022 2:53 PM INSPECTOR [employer] WAFER Oxygen Saturation - - Inhaled Oxygen Concentration - - Weight 86.2 kg (190 lb) 03/17/2022 2:53 PM INSPECTOR [employer] WAF[employer] Height 180.3 cm (5' 11 ) 03/17/2022 2:53 PM INS[employer]OR [employer] W[employer] Body Mass Index 26.5 03/17/2022 2:53 PM INSPECTOR [employer] WAFER Plan of Treatment Health Maintenance Due Date Last Done Comments Pneumococcal PPSV23/PCV13 65 + Years / High and Highest Risk (1 of 5 - PCV) 11/27/1974 Influenza Vaccine (Season Ended) 2025 Insurance MEDICARE [facility] Care Teams Train Braker Relationship Specialty Start Date End Date Tom Bermudez DO [address] [place] [address] [id number] PCP - General Internal Medicine 03/16/21
--- OUTSIDE RECORDS SUMMARY | 2024-09-10 11:22 | XMS_ITS | Encounter Summary ---
Author Organization [facility] Address [address] [place] [address] Care Team Providers Care Turn Down Man Name Role Phone AnaiTom sharpe DO Primary Care Provider [phone] Encounter Details Date Type Department Care Team (Late st Contact Info) Description 03/24/2023 Lab Requisition [facility] - DermPath Lab [address] [place] [address] Edmar Rodriges MD [address] [place] [address] Social History Tobacco Use Types [...] Priority Date/Time Associated Diagnosis Comments DERMATOPATHOLOGY Routine 03/22/2023 12:0 0 AM OPTICAL BRIGHTENER MAKER HELPER documented in this encounter Results * DERMATOPATHOLOGY (03/22/2023 12:00 AM OPTICAL BRIGHTENER MAKER HELPER) Case Report Dermatopathology Report Case: [id number] Authorizing Provider: Edmar Rodriges MD Collected: 03/22/2023 12:00 AM Ordering Location: [facility] DermPath Lab Received: 03/24/2023 08:48 AM Pathologist: Ricarda Wei MD Specimens: A) - Skin, right posterior ear B) - Skin, right preauricular cheek C) - Skin, left side neck below ear D) - Skin, left upper medial back 3:09 PM [employer] BR[employer] MAKER HELPER DERMATOPATHOLOGY LABORATORY Final Diagnosis Specimen A. SKIN, right posterior ear: SUPERFICIAL (FOCALLY INVASIVE) SQUAMOUS CELL CARCINOMA ARISING IN AN ACTINIC KERATOSIS (C44.222) Specimen B. SKIN, right preauricular cheek: ACTINIC KERATOSIS (L57.0) Specimen C. SKIN, left side neck below ear: SQUAMOUS CELL CARCINOMA IN SITU (WOODY'S DISEASE) (D04.4) ACTINIC KERATOSIS (L57.0) Specimen D. SKIN, left upper medial back: SQUAMOUS CELL CARCINOMA IN SITU (WOODY'S DISEASE) (D04.5) ACTINIC KERATOSIS (L57.0) 3 3:09 PM [facility] DERMATOPATHOLOGY LABORATORY Clinical History A-D: R/O SCC, BCC Woody's Disease 3 3:09 PM [facility] DERMATOPATHOLOGY LABORATORY Gross Description Specimen A: Received is one formalin filled container labeled with the patient's name and designated right posterior ear. The specimen consists of a shave biopsy measuring 6x4x2 mm. Jar 0. Specimen B: Received is one formalin filled container labeled with the patient's name and designated right preauricular cheek. The specimen consists of a shave biopsy measuring 8x6x1 mm. Jar 0. Specimen C: Received is one formalin filled container labeled with the patient's name and designated left side neck below ear. The specimen consists of a shave biopsy measuring 9x6x2 mm. Jar 0. Specimen D: Received is one formalin filled container labeled with the patient's name and designated left upper medial back. The specimen consists of a shave biopsy measuring 10x8x1 mm. Jar 0. 3 3:09 PM [facility] DERMATOPATHOLOGY LABORATORY Microscopic Description Specimen A. SKIN, right posterior ear: Sections reveal parakeratosis, acanthosis and keratinocyte dysmaturation which is most prominent in the lower epidermis. Focal nests are present in the dermis. Specimen B. SKIN, right preauricular cheek: There is focal parakeratosis. The lower half of the epidermis shows disorderly maturation of keratinocytes with nuclear pleomorphism. Specimen C. SKIN, left side neck below ear: The epidermis shows parakeratosis, full thickness disorderly maturation of keratinocytes, mitoses at different levels, and dyskeratotic cells. There is focal parakeratosis. The lower half of the epidermis shows disorderly maturation of keratinocytes with nuclear pleomorphism. Specimen D. SKIN, left upper medial back: The epidermis shows parakeratosis, full thickness disorderly maturation of keratinocytes, mitoses at different levels, and dyskeratotic cells. There is focal parakeratosis. The lower half of the epidermis shows disorderly maturation of keratinocytes with nuclear pleomorphism. 3 3:09 PM [facility] DERMATOPATHOLOGY LABORATORY Disclaimer An external and internal [...] purposes. Billing Codes Specimen Charges Stain Charges [id number] 1 1 1 1 3 3:09 PM [employer]ICAL BRIGHTENER MAKER HELPER DERMATOPATHOLOGY LABORATORY Embedded Images 3 3:09 PM [employer] HEL[employer] DERMATOPATHOLOGY LABORATORY Pathology/Cytology TISSUE SPECIMEN FROM SKIN / Unknown 03/22/2023 03/24/2023 8:48 AM OPTICAL BR[employer]ENER MAKER HELPER Miscellaneous samples (specimen) TISSUE SPECIMEN FROM SKIN / Unknown 03/22/2023 03/24/2023 8:48 AM OPTICAL BRIGHTENER MAKER HELPER Miscellaneous samples (specimen) TISSUE SPECIMEN FROM SKIN / Unknown 03/22/2023 03/24/2023 8:48 AM OPTICAL BRIGHTENER MAKER HELPER Miscellaneous samples (specimen) TISSUE SPECIMEN FROM SKIN / Unknown 03/22/2023 03/24/2023 8:48 AM OPTICAL BRIGHTENER MAKER HELPER us Edmar Rodriges MD LAB - PATHOLOGY/CYTOLOGY ORD ERABLES Final Result DERMATOPATHOLOGY LABORATORY [facility] - Department of Dermatology [address] [place] [address], [facility] [phone] documented in this encounter Visit Diagnoses Not on filedocumented in this encounter Care Teams Turn Down Man Relationship Specialty Start Date End Date Tom Bermudez DO PCP - General 09/06/21 documented as of this encounter
== END 2024-09-10 10:27 | disposition home or self-care (01) ==
PROVIDERS: PCP Internal Medicine; Visit Provider Internal Medicine Cardiovascular Disease
DX: I71.21 Aneurysm of the ascending aorta, without rupture (principal); J43.9 Emphysema, unspecified
CPT/HCPCS: 71250